=== PATIENT | female | born 1955 | race Asian ===

== ENCOUNTER 2019-05-15 16:44 | Emergency (ER) | payer SELFPAY ==
[~2019-05-15] VITALS: Ht 152.4 cm; Wt 49.9 kg
[2019-05-15 17:17] VITALS: BP_SYST 145
--- NOTE | 2019-05-15 17:20 | NUR ---
Patient to ER bed 06 to gown for evaluation. Side rails up. Report given to KRYSTAL Ferreira
--- NOTE | 2019-05-15 17:25 | NUR ---
PT CAME TO ER FOR NAUSEA AND VOMITING SINCE 829. PT HAS FAMILY AT BEDSIDE, ON MONITOR, AWAITING BEDSIDE.
[2019-05-15] MEDS ORDERED: ONDANSETRON HCL 4 MG/2 ML VIAL IVP ONE (17:30)
[2019-05-15] MEDS ORDERED: NACL 0.9% 1,000 ML IV ONE (17:30)
--- NOTE | 2019-05-15 17:30 | NUR ---
ER at bedside examining patient.
[2019-05-15] MEDS ORDERED: MECLIZINE HCL 25 MG TABLET (ANITVERT) PO ONE (18:30)
--- NOTE | 2019-05-15 18:40 | NUR ---
PT RESTING IN BED, COMFORTABLY AT THIS TIME.
--- NOTE | 2019-05-15 19:25 | NUR ---
Patient given written and verbal discharge instructions and verbalizes understanding. ER MD discussed with patient the results and treatment provided. Patient in stable condition. ID arm band removed. IV catheter removed intact and dressing applied, no active bleeding. Rx of MECLIZINE AND ZOFRAN given. Patient educated on pain management and to follow up with PMD. Pain Scale 0. Opportunity for questions provided and answered. Medication side effect fact sheet provided.
[2019-05-15 19:36] VITALS: BP_SYST 145
== END 2019-05-15 19:25 | disposition home or self-care (01) ==
LOC: SED 16:44
DX: R42 Dizziness and giddiness (principal); R11.10 Vomiting, unspecified; I10 Essential (primary) hypertension
CPT/HCPCS: 70450; 96361; 96374; 99284; J2405; J7030; J8597